=== PATIENT | female | born 1990 | race Caucasian/White ===

== ENCOUNTER 2022-05-21 13:41 | Observation (INO) | payer MEDICAID ==
[~2022-05-21] VITALS: Ht 154.9 cm; Wt 66.2 kg
[2022-05-21] MEDS ORDERED: PREN-118 PO (14:26)
== END 2022-05-21 16:45 | disposition home or self-care (01) ==
LOC: 8 EST LDRP 13:41
PROVIDERS: ADMIT Obstetrics & Gynecology; ATTEND Obstetrics & Gynecology
DX: O36.8130 Decreased fetal movements, third trimester, not applicable or unspecified (principal); O60.03 Preterm labor without delivery, third trimester; Z3A.31 31 weeks gestation of pregnancy; Z98.891 History of uterine scar from previous surgery
CPT/HCPCS: 59025; 76815; 76818; G0378; 99281

== ENCOUNTER 2022-07-04 22:46 | Observation (INO) | payer MEDICAID ==
[~2022-07-04] VITALS: Ht 154.9 cm; Wt 86.2 kg
[~2022-07-04 22:46] MED LIST: PREN-118 PO
[2022-07-04] MEDS ORDERED: FERR325T6 PO (23:25)
[2022-07-04] MEDS ORDERED: FOLIC ACID (23:25)
[2022-07-04] MEDS ORDERED: LACTATED RINGERS 1,000 ML IV SCH (23:30)
[2022-07-04] MEDS ORDERED: ONDANSETRON HCL 4MG/2ML INJ IV PRN (23:30)
[2022-07-05 00:17] LABS: HEMATOCRIT 35.4 % (36.0-48.0); HEMOGLOBIN 11.5 g/dL (12.0-16.0); MEAN CORPUSCULAR HEMOGLOBIN 27.9 pg (28.0-32.0); MEAN CORPUSCULAR VOLUME 86.2 fL (81.0-99.0); PLATELET 266 x1000/uL (130-400); RED BLOOD CELL COUNT 4.11 mill/uL (4.2-5.4)
[2022-07-05 00:18] LABS: CLARITY URINE CLEAR (CLEAR); COLOR URINE YELLOW (YELLOW); KETONES URINE TRACE (NEGATIVE); LEUKOCYTE ESTERASE URINE NEGATIVE (NEGATIVE); NITRITE URINE NEGATIVE (NEGATIVE); OCCULT BLOOD URINE NEGATIVE (NEGATIVE); PH URINE 6.5 (4.5-8.0); PROTEIN URINE NEGATIVE (NEGATIVE); SPECIFIC GRAVITY URINE 1.015 (1.005-1.030)
[2022-07-05 00:23] LABS: CHLORIDE 104 mEq/L (98-107)
[2022-07-11] MEDS ORDERED: IBUP-2030 PO (06:27)
== END 2022-07-05 01:10 | disposition home or self-care (01) ==
LOC: 8 EST LDRP 22:46
PROVIDERS: ADMIT Obstetrics & Gynecology; ATTEND Obstetrics & Gynecology
DX: O21.2 Late vomiting of pregnancy (principal); O26.893 Other specified pregnancy related conditions, third trimester; R19.7 Diarrhea, unspecified; N89.8 Other specified noninflammatory disorders of vagina; R10.2 Pelvic and perineal pain; Z3A.37 37 weeks gestation of pregnancy; Z98.891 History of uterine scar from previous surgery
CPT/HCPCS: 36415; 59025; 80053; 81003; 85027; 96361; 96374; G0378; J2405; 96360; 99281